=== PATIENT | female | born 1990 | race African-American/Black ===

== ENCOUNTER 2016-06-22 18:40 | Emergency (ER) | payer OTHER ==
[~2016-06-22] VITALS: Ht 175.3 cm; Wt 51.3 kg
[~2016-06-22 18:40] MED LIST: CLON1TAB PO; NITR100C62 PO
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
[2016-06-22] MEDS ORDERED: CYCL5TAB PO (18:55)
[2016-06-22] MEDS ORDERED: HYDR-79 PO (18:55)
[2016-06-22 19:10] VITALS: BP 122/58
[2016-06-22] MEDS ORDERED: HYDROCODON/IBUPROFEN 7.5/200MG TABLET. PO ONE (19:15)
[2016-06-22] MEDS ORDERED: CYCLOBENZAPRINE 10 MG TABLET. PO ONE (19:15)
== END 2016-06-22 19:10 | disposition home or self-care (01) ==
LOC: ER 18:40
DX: S29.012A Strain of muscle and tendon of back wall of thorax, initial encounter (principal); M54.2 Cervicalgia; F12.10 Cannabis abuse, uncomplicated; V89.2XXA Person injured in unspecified motor-vehicle accident, traffic, initial encounter; Y93.89 Activity, other specified; Y99.8 Other external cause status; Y92.89 Other specified places as the place of occurrence of the external cause
CPT/HCPCS: 99283

== ENCOUNTER 2016-10-13 19:52 | Emergency (ER) | payer OTHER ==
[~2016-10-13] VITALS: Ht 175.3 cm; Wt 51.3 kg
[~2016-10-13 19:52] MED LIST changes: +CYCL5TAB PO; +HYDR-79 PO
[2016-10-13 20:00] VITALS: BP 120/63
[2016-10-13] MEDS ORDERED: CIPR500T PO (21:01)
[2016-10-13] MEDS ORDERED: PHEN-318 PO (21:01)
--- NOTE | 2016-10-13 21:01 | PHYS DOC ---
Past History Past Medical History: Anxiety Past Surgical History: No Surgical History Smoking: Non-smoker Alcohol Use: None Drug Use: Marijuana Adult General Chief Complaint Chief Complaint: ABDOMINAL PAIN [facility] HPI This is a pleasant 26-year-old who is a 6-year-old child at home presents with lower abdominal pain and specifically just asked for test. She said she is not supposed to have her menstrual period for the next several weeks but has been sexually active in an unprotected manner. She denies any history of STDs, vaginal discharge, UTI symptoms, abdominal pain is consistent. She describes as cramping in nature with waves of pain. It is now resolved at this time she wants to make sure she is not . She denies any numbness, tingling, headache, nausea, vomiting, diarrhea, she denies any travel outside the country recent antibiotics or other concerns. sHe denies any dysuria urgency or frequency as well. Review of Systems Review of Systems Constitutional: Denies fever or chills [] Eyes: Denies change in visual acuity, redness, or eye pain [] HENT: Denies nasal congestion or sore throat [] Respiratory: Denies cough or shortness of breath [] Cardiovascular: No additional information not addressed in HPI [] GI: Only complaint is crampy abdominal pain with no nausea no vomiting of bloody stools or diarrhea. : Denies dysuria or hematuria [] Musculoskeletal: Denies back pain or joint pain [] Integument: Denies rash or skin lesions [] Neurologic: Denies headache, focal weakness or sensory changes [] Endocrine: Denies polyuria or polydipsia [] Allergies Allergies Allergies Coded Allergies Type Severity Reaction Last Updated Verified No Known Drug Allergies 03/29/14 No Physical Exam Physical Exam Constitutional: Well developed, well nourished, no acute distress, non-toxic appearance. [] Cardiovascular:Heart rate regular rhythm, no murmur [] Lungs & Thorax: Bilateral breath sounds clear to auscultation [] Abdomen: Bowel sounds normal, soft, no tenderness, no masses, no pulsatile masses. [] Skin: Warm, dry, no erythema, no rash. [] Back: No tenderness, no CVA tenderness. [] Neurologic: Alert and oriented X 3, normal motor function, normal sensory function, no focal deficits noted. [] Psychologic: Affect normal, judgement normal, mood normal. [] EKG EKG [] Radiology/Procedures Radiology/Procedures [] Course & Med Decision Making Course & Med Decision Making Pertinent Labs and Imaging studies reviewed. (See chart for details) patient clearly stated when she arrived that she wanted other test and a urinalysis and a test. She just wants to make sure she is not . Her urinalysis did reveal nitrates and signs of UTI and she is hCG negative by urine test. She is very happy with that like to be discharged this time. She has no abdominal pain at discharge and will follow-up with her primary care doctor for continued complaints. Impression UTI, Disposition: PCP follow-up [] Dragon Disclaimer Dragon Disclaimer This chart was dictated in whole or in part using Voice Recognition software in a busy, high-work load, and often noisy Emergency Department environment. It may contain unintended and wholly unrecognized errors or omissions. Departure Departure: Impression: Primary Impression: UTI (urinary tract infection) Additional Impression: Abdominal pain Disposition: HOME, SELF-CARE Condition: STABLE Referrals: PCP,NO (PCP) Patient Instructions: Abdominal Pain (Nonspecific), Urinary Tract Infection Additional Instructions: Please return for any new or increasing symptoms or given any question concerns. Scripts Phenazopyridine Hcl (PYRIDIUM) 200 Mg Tablet 200 MG PO TID for 5 Days, #15 TAB Prov: SOURAV ONOFRE MD 10/13/16 Ciprofloxacin Hcl (CIPROFLOXACIN HCL) 500 Mg Tablet 1 TAB PO BID, #20 TAB Prov: SOURAV ONOFRE MD 10/13/16 Problem Qualifiers SOURAV ONOFRE MD Oct 13, 2016 21:01
[2016-10-13 21:20] LABS: BACTERIA,URINE MANY /HPF (0-FEW); BILIRUBIN,URINE NEG (NEG); CLARITY,URINE HAZY; COLOR,URINE YELLOW; GLUCOSE,URINE NEG (NEG); NITRITE,URINE POS (NEG); RBC,URINE OCC /HPF (0-2); UROBILINOGEN,URINE 1 mg/dL (0.2 mg/dL)
[2016-10-13 21:21] LABS: SQUAMOUS EPITHELIAL CELL,UR FEW /LPF
== END 2016-10-13 21:20 | disposition home or self-care (01) ==
LOC: ER 19:52
DX: Z32.02 Encounter for pregnancy test, result negative (principal); N39.0 Urinary tract infection, site not specified; F41.9 Anxiety disorder, unspecified; F12.10 Cannabis abuse, uncomplicated
CPT/HCPCS: 81001; 81025; 87086; 99284

== ENCOUNTER 2016-12-18 08:27 | Emergency (ER) | payer OTHER ==
[~2016-12-18 08:27] MED LIST changes: +CIPR500T PO; +PHEN-318 PO
[2016-12-18] MEDS ORDERED: IBUP400T18 PO (08:47)
--- NOTE | 2016-12-18 08:48 | PHYS DOC ---
Past History Past Medical History: Anxiety Past Surgical History: No Surgical History Smoking: Non-smoker Alcohol Use: None Drug Use: Marijuana Adult General Chief Complaint Chief Complaint: dental pain HPI HPI 26-year-old female presenting to the emergency department with dental pain. Her pain started more than 7 days ago. The pain is moderate nonradiating intermittent and without alleviating factors. She denies any stridor tongue swelling drooling or difficulty breathing. Review of systems is negative for fevers chills nausea vomiting. All other review of systems is negative unless otherwise noted in history of present illness. ED course: 26-year-old female presenting with dental pain. On evaluation there is no obvious dental hattie. No exposed dentin or pulp. Patient is breathing comfortably in the examination room. I recommend ibuprofen for pain control to follow up with her dentist. The pt was very upset when I explained the plan to her, however was unable to explain why she was so upset. I am suspicious this may relate to opioids. She was then d/c with plan as above. Review of Systems Review of Systems SEE ABOVE Allergies Allergies Allergies Coded Allergies Type Severity Reaction Last Updated Verified No Known Drug Allergies 03/29/14 No Physical Exam Physical Exam Constitutional: Well developed, well nourished, no acute distress, non-toxic appearance. [] HENT: Normocephalic, atraumatic, bilateral external ears normal, oropharynx moist, no oral exudates, nose normal. [] Eyes: PERRLA, EOMI, conjunctiva normal, no discharge. [] Neck: Normal range of motion, no tenderness, supple, no stridor. [] Cardiovascular:Heart rate regular rhythm, no murmur [] Lungs & Thorax: Bilateral breath sounds clear to auscultation [] Abdomen: Bowel sounds normal, soft, no tenderness, no masses, no pulsatile masses. [] Skin: Warm, dry, no erythema, no rash. [] Back: No tenderness, no CVA tenderness. [] Extremities: No tenderness, no cyanosis, no clubbing, ROM intact, no edema. [] Neurologic: Alert and oriented X 3, normal motor function, normal sensory function, no focal deficits noted. [] Psychologic: Affect normal, judgement normal, mood normal. [] EKG EKG [] Radiology/Procedures Radiology/Procedures [] Course & Med Decision Making Course & Med Decision Making Pertinent Labs and Imaging studies reviewed. (See chart for details) [] Dragon Disclaimer Dragon Disclaimer This chart was dictated in whole or in part using Voice Recognition software in a busy, high-work load, and often noisy Emergency Department environment. It may contain unintended and wholly unrecognized errors or omissions. Departure Departure: Impression: Primary Impression: Pain, dental Disposition: HOME, SELF-CARE Condition: STABLE Referrals: PCP,NO (PCP) Patient Instructions: Dental Pain, [id number] Additional Instructions: Thank you for allowing us to participate in your care today. Followup with a dentist on Tuesday. Call your Primary Doctor tomorrow and inform them of your visit today. If you do not have a primary care provider you can ask for a list of our primary care providers. Return to the emergency department you have any new or concerning findings. This should be evaluated by the primary care physician and any necessary consulting services for continued management within a few days after discharge. Return to emergency room if you have any new or concerning symptoms including but not limited to fever, chills, nausea, vomiting, intractable pain, any new rashes, chest pain, shortness of air, uncontrolled bleeding, difficulty breathing, and/or vision loss. Scripts Ibuprofen (IBUPROFEN) 400 Mg Tablet 1 TAB PO PRN Q8HRS Y for PAIN, #20 TAB Prov: IVONNE ARAUZ MD 12/18/16 IVONNE ARAUZ MD Dec 18, 2016 08:48
== END 2016-12-18 08:45 | disposition home or self-care (01) ==
LOC: ER 08:27
DX: K08.89 Other specified disorders of teeth and supporting structures (principal); F41.9 Anxiety disorder, unspecified
CPT/HCPCS: 99282